=== PATIENT | female | born 1945 | race Caucasian/White ===

== ENCOUNTER 2017-02-12 17:03 | Emergency (ER) | payer MEDICARE, BC ==
[2017-02-12] MEDS ORDERED: oxyCODONE/Acetamin 5/325 MG* TAB PO ONE (17:43)
--- NOTE | 2017-02-12 18:09 | RAD ---
Indication: Fall. Head injury. CT of the brain was performed without IV contrast. No prior study is available for comparison. Ventricular structures are midline. No midline shift is noted. The extra-axial spaces are unremarkable. There is no evidence of intracranial mass or hemorrhage. No other high or low density lesions are identified. There is opacification of left maxillary sinus. There is no evidence of intracranial mass or hemorrhage is noted. There is a hematoma over the right supraorbital ridge. IMPRESSION: NO INTRACRANIAL MASS OR HEMORRHAGE IS NOTED. NO UNDERLYING SKULL FRACTURE. HEMATOMA OVER THE RIGHT SUPRAORBITAL RIDGE.
--- NOTE | 2017-02-12 18:13 | RAD ---
Indication: Facial injury after fall. CT of the facial bones was obtained in the axial plane. Sagittal and coronal reconstructed images were obtained. The mandible demonstrates no evidence of fracture. Temporomandibular joints are grossly unremarkable. No dislocation is noted. Degenerative changes of the temporomandibular joint is noted bilaterally however. The maxilla demonstrates no evidence of fracture. The pterygoid plates are grossly intact. There is opacification of the left maxillary sinus likely due to mucosal thickening and air-fluid level. This is likely due to chronic sinusitis. There is deformity of the right nasal arch and the possibility of a fracture of the right nasal arch should BE considered. Zygomatic arch is intact. The orbits are intact without evidence of fracture. Mastoid air cells are grossly unremarkable. There is a hematoma overlying the right supraorbital ridge consistent with a scalp hematoma. IMPRESSION: SLIGHTLY DEFORMED FRACTURE OF THE RIGHT NASAL ARCH. CHRONIC SINUSITIS OF THE LEFT MAXILLARY SINUS. SCALP HEMATOMA OVERLYING THE RIGHT SUPRAORBITAL RIDGE. DEGENERATIVE CHANGES OF THE TEMPOROMANDIBULAR JOINTS BILATERALLY.
--- NOTE | 2017-02-12 18:26 | RAD ---
Indication: Fall, wrist deformity 3 views of the wrist demonstrates fracture of the distal radius. Overriding of the fracture fragments is noted. Degeneration of the scaphotrapezium and scaphotrapezoid as well as the first carpal metacarpal joint is noted. IMPRESSION: Comminuted fracture of the distal radius with overriding of the fracture fragments.
--- NOTE | 2017-02-12 19:25 | ED ---
Upper Extremity Pain - HPI Summary HPI Summary: 71F presents with right wrist pain and facial pain s/p fall today. She walking the dog when she tripped over the dog and landed on her right wrist and on her face. She denies any LOC. She is on Eliquis for a fib. She has multiple abrasion across face and right hand. She has deformity of right wrist but states due to arthritis has always had deformity there it is just more swollen. She denies any numbness or tingling of the hand. She has laceration of right cheek. She denies any headache, nausea or vomiting. She denies any chest pain , lower extremity pain, or abdominal pain. She states he tetanus is up to date. She is right handed. - History of Current Complaint Chief Complaint: EDGeneral Stated Complaint: FALL Time Seen by Provider: 02/12/17 17:34 - Allergies/Home Medications Allergies/Adverse Reactions: Allergies Allergy/AdvReac Type Severity Reaction Status Date / Time No Known Allergies Allergy Verified 02/12/17 17:35 PMH/Surg Hx/FS Hx/Imm Hx Endocrine/Hematology History: Reports: Hx Anticoagulant Therapy Cardiovascular History: Reports: Hx Atrial Fibrillation - Immunization History Date of Tetanus Vaccine: unk Date of Influenza Vaccine: utd Infectious Disease History: No Infectious Disease History: Denies: Traveled Outside the [place] in Last 30 Days - Family History Known Family History: Positive: Cardiac Disease - Social History Alcohol Use: Rare Substance Use Type: Reports: None Smoking Status (MU): Former Smoker Review of Systems Negative: Fever Negative: Chest Pain Negative: Shortness Of Breath Positive: Myalgia - right wrist pain Positive: Other - laceration face Negative: Headache All Other Systems Reviewed And Are Negative: Yes Physical Exam Triage Information Reviewed: Yes Vital Signs On Initial Exam: Initial Vitals Temp Pulse Resp BP Pulse Ox 97.8 F 81 20 132/63 100 02/12/17 17:07 02/12/17 17:07 02/12/17 17:07 02/12/17 17:07 02/12/17 17:07 Vital Signs Reviewed: Yes Appearance: Positive: Well-Appearing Skin: Positive: Warm, Dry, Other - 4cm laceration of right cheek, multiple abrasions of nose and right hand Head/Face: Positive: Normal Head/Face Inspection, Other - no step off, raccoon eyes, paul sign, nose appear midline Eyes: Positive: Normal, Conjunctiva Clear ENT: Positive: Normal ENT inspection, Pharynx normal, TMs normal, Other - no septal hematoma Respiratory/Lung Sounds: Positive: Clear to Auscultation, Breath Sounds Present Cardiovascular: Positive: Normal, RRR Musculoskeletal: Positive: Limited @ - right wrist, Other - nontender right elbow and hand, no snuff box tenderness, tenderness and edema of right wrist near radius, good pulses, sensation grossly intact, capillary refill <2 secs, Neurological: Positive: Sensory/Motor Intact, Alert, Oriented to Person Place, Time, CN Intact II-III - [place] Coma Scale Best Eye Response: 4 - Spontaneous Best Motor Response: 6 - Obeys Commands Best Verbal Response: 5 - Oriented Coma Scale Total: 15 Procedures - Splinting Location: right wrist Hand-Made Type: orthoglass Splint: volar Pre-Proc Neuro Vasc Exam: normal Post-Proc Neuro Vasc Exam: normal - Laceration/Wound Repair 1 Location: face Description: Linear Anesthesia: Local, 1.0% Length, Depth and Shape: 4cm by 1/2 cm Betadine Prep?: No Irrigated w/ Saline (ccs): 100 Laceration/Wound Explored: clean Closure: Single Layer Suture Type: Prolene - 6-0 Number of Sutures: 4 Diagnostics - Vital Signs Vital Signs Temp Pulse Resp BP Pulse Ox 02/12/17 18:15 16 02/12/17 17:30 97.8 F 81 20 132/63 100 02/12/17 17:07 97.8 F 81 20 132/63 100 - Laboratory Lab Statement: Any lab studies that have been ordered have been reviewed, and results considered in the medical decision making process. - Radiology wrist Xray Interpretation: Positive (See Comments) - IMPRESSION: Comminuted fracture of the distal radius with overriding of the fracture fragments. Radiology Interpretation Completed By: Radiologist - CT head CT Interpretation: Positive (See Comments) - IMPRESSION: NO INTRACRANIAL MASS OR HEMORRHAGE IS NOTED. NO UNDERLYING SKULL FRACTURE. HEMATOMA OVER THE RIGHT SUPRAORBITAL RIDGE. CT Interpretation Completed By: Radiologist maxillary facial CT Interpretation: Positive (See Comments) - IMPRESSION: SLIGHTLY DEFORMED FRACTURE OF THE RIGHT NASAL ARCH. CHRONIC SINUSITIS OF THE LEFT MAXILLARY SINUS. SCALP HEMATOMA OVERLYING THE RIGHT SUPRAORBITAL RIDGE. DEGENERATIVE CHANGES OF THE TEMPOROMANDIBULAR JOINTS BILATERALLY. CT Interpretation Completed By: Radiologist Course/Dx - Course Course Of Treatment: 71F presents with head and right wrist injury s/p fall today. is on blood thinners. denies any LOC. no vomiting. has laceration to right cheek that closed with 4 sutures. cleaned abrasion present on face and right hand. has deformity of right wrist that states had in past but is more swollen. neurovascular intact. CT shows nasal fracture so will have follow up with ENT. xray wrist shows communicated distal radius fx of right hand. due to impacted fracture did not attempt to reduce it as neurovascular intact. placed in volvar splint and will have follow up with ortho. patient does not live here and will follow up with ortho back home. patient understands and agrees with plan - Diagnoses Differential Diagnosis/HQI/PQRI: Positive: Fracture (Closed), Laceration, Strain , Sprain, Other - head injury Provider Diagnoses: Facial laceration, Nasal fracture, Fracture of distal end of radius Discharge - Discharge Plan Condition: Good Disposition: HOME Prescriptions: oxyCODONE/Acetamin 5/325 MG* [Percocet 5/325 TAB*] 1 tab PO Q6H PRN #16 tab MDD 4 PRN Reason: Pain Patient Education Materials: Care For Your Stitches (ED), Wrist Fracture in Adults (ED) Referrals: No Primary Care Phys,NOPCP [Primary Care Provider] - Chinmay Diana MD [Medical Doctor] - Richard Rushing MD [Medical Doctor] - Additional Instructions: Keep elbow in sling as needed, make sure to do ROM of shoulder Keep splint on area and keep dry Call ortho office tomorrow to set up appointment for follow up Use Tylenol for pain every 6 hours and use narcotic for breakthrough pain every 6 hours Ice, elevate Return to ED or primary for suture removal in 5 days Return to ED if develop any signs of infection, numbness or tingling of right arm, or any new or worsening symptoms
== END 2017-02-12 19:36 | disposition home or self-care (01) ==
LOC: ED 17:03
DX: S01.81XA Laceration without foreign body of other part of head, initial encounter (principal); S52.91XA Unspecified fracture of right forearm, initial encounter for closed fracture; S02.2XXA Fracture of nasal bones, initial encounter for closed fracture; X58.XXXA Exposure to other specified factors, initial encounter; Y93.9 Activity, unspecified; Y92.9 Unspecified place or not applicable; Y99.9 Unspecified external cause status; W19.XXXA Unspecified fall, initial encounter; Z87.891 Personal history of nicotine dependence
CPT/HCPCS: 12013; 70450; 70486; 99282; A9270-GY